=== PATIENT | female | born 1975 ===

== ENCOUNTER → 2022-07-12 09:13 | Outpatient (BNVA) | payer OTHER, SELFPAY | PROVIDERS: PCP Family Medicine; Visit Provider Nurse Practitioner Family | DX: M62.838 Other muscle spasm (principal); M79.7 Fibromyalgia; M51.36 Other intervertebral disc degeneration, lumbar region; M47.26 Other spondylosis with radiculopathy, lumbar region; G35 Multiple sclerosis | CPT/HCPCS: 99202 ==

== ENCOUNTER → 2023-01-25 14:04 | Outpatient (BNVA) | payer OTHER, SELFPAY | PROVIDERS: Visit Provider Physician Assistant ==